=== PATIENT | male | born 1950 | race Caucasian/White ===

== ENCOUNTER 2017-03-15 10:52 | Day surgery (SDC) | payer OTHER ==
[~2017-03-15] VITALS: Ht 172.7 cm; Wt 91.0 kg
[~2017-03-15 10:52] MED LIST: ASPI-973 PO; DIFL500T PO; LOSA25TA21 PO; Sodium Chloride LOK Flush 10 mL Syringe IVFLUSH SCH; TAMS0.4C29 PO; ZLP5T PO; fentaNYL-PF 50 mCg/mL 2 mL Inj IVPUSH PRN
[2017-03-15] MEDS ORDERED: Lidocaine Topical 2% 30 mL Jelly ONE (11:42)
[2017-03-15 12:25] VITALS: BP 144/83; PULSE 50; RESP 14; O2SAT 98
[2017-03-15] MEDS: Lactated Ringer's 1,000 ML IV ONE ×2 (13:10→13:45)
[2017-03-15 13:57] VITALS: BP 125/70; PULSE 53; RESP 16; O2SAT 97
[2017-03-15 14:07] VITALS: BP 125/70; PULSE 56; RESP 16; O2SAT 98
[2017-03-15 14:17] VITALS: BP 135/85; PULSE 54; RESP 16; O2SAT 95
[2017-03-15 14:27] VITALS: BP 137/90; PULSE 55; RESP 16; O2SAT 98
--- NOTE | 2017-03-15 14:39 | DRSVH ---
PROCEDURE: X-RAY CHEST ONE VIEW, PORTABLE ([id number]) INDICATIONS: POST DILATION TEAR TECHNIQUE: One view of the chest was acquired. COMPARISON: [facility], CR, XR BARIUM SWALLOW ESOPHAGUS, 02/26/2017, 13:54[facility], [facility]ST 1VW ([facility]ABLE), 06/16/2007, 1:46. FINDINGS: Surgical changes and devices: None. Lungs and pleura: Left basilar infiltrate. There is chronic interstitial prominence. No pleural effu sions or pneumothorax. Mediastinum: Mediastinal contours appear normal. Heart size is normal. Bones and chest wall: No suspicious bony lesions. Overlying soft tissues appear unremarkable. IMPRESSION: Left basilar infiltrate suggesting developing pneumonia. Chronic interstitial prominence. Dictated by: Macarena Seymour M.D. on 03/15/2017 at 14:37 Approved by: Macarena Seymour M.D. on 03/15/2017 at 14:38
--- NOTE | 2017-03-15 22:49 | ENDO ---
[address] [address] ENDOSCOPY PROCEDURE PATIENT: BRIAN CHAMBERS : 1950 MR#: [id number] ADMIT: 03/15/2017 JOB ID: [id number] PREPROCEDURE DIAGNOSIS: Dysphagia. POSTPROCEDURE DIAGNOSIS: Dysphagia. PROCEDURE PERFORMED: Upper endoscopy with biopsies and dilation. SURGEON: Shayla Bae MD. INSTRUMENT: Olympus GIF H 180 J. MEDICATIONS: Versed 7 mg, fentanyl 150 mcg. HISTORY OF PRESENT ILLNESS: This is a 66-year-old man with severe dysphagia requiring a liquid diet and for which he has required endoscopic removal of foreign body in the past. He has not undergone previous dilation. Upper GI study revealed a stricture in the distal esophagus, likely Schatzki's ring, and does not allow passage of a 13 mm barium tablet. He was seen in my clinic and therefore full workup was ordered. FINDINGS: 1. The GE junction was at 41 cm. Balloon dilation was performed to 13.5, 15, and 16.5 mm. A mucosal tear was noted at the completion of 16.5 mm, approximately 0.5 cm in width without sign of full-thickness perforation, 3 cm in length. 2. Random biopsy at 30 cm given previous history of eosinophils seen on prior biopsies. 3. GE junction was at 41 cm. LA grade A esophagitis was noted at that level, biopsies were obtained. DESCRIPTION OF PROCEDURE: The patient was brought to the endoscopy suite, and placed in left lateral decubitus position. A bite block was placed. Moderate sedation was induced. An upper endoscope was advanced into the esophagus. It appeared grossly normal with the exception of the gastroesophageal junction at 41 cm, where there was a benign-appearing stricture and mild esophagitis, LA grade A. The endoscope was advanced in the stomach and to the third portion of the duodenum. The entire visualized duodenum appeared normal. The entire stomach appeared normal. Retroflex view of the gastroesophageal junction revealed a Hill grade 1 flap valve. The stomach was desufflated, and the endoscope was withdrawn. Due to the history of dysphagia, dilation was performed with a balloon, 1st to 13.5 cm or 35 mm for one minute, then to 15 mm for one minute, then to 16.5 mm for one minute. Mucosal tear was noted after 16.5 mm, as noted above. Although the patient had been scheduled for Vila pH probe placement at the completion of the procedure, the decision was made to defer this given the size of the mucosal break. A chest x-ray was ordered at the completion of the procedure. SPECIMENS: GE junction at 41 cm. Random esophageal biopsy at 30 cm to rule out eosinophilic esophagitis. ESTIMATED BLOOD LOSS: None. COMPLICATIONS: None. A small mucosal tear, 0.5 cm in width, raises concern in order to warrant a chest x-ray at the completion of the procedure.
--- NOTE | 2017-03-19 11:41 | PATH ---
SURGICAL PATHOLOGY Attending Physician:Shayla Bae MD CASE STATUS: Signed Out PATIENT NAME: BRIAN CHAMBERS PID: [id number] : 1950 DATE COLLECTED:03/15/2017 00:00 SPECIMEN: 1: Esophagus, Biopsy 2: Esophagus, Biopsy CLINICAL HISTORY: DYSPHAGIA 1). ESOPHAGUS AT 30CM BIOPSIES 2). GASTRO-ESOPHAGEAL JUNCTION BIOPSIES FINAL DIAGNOSIS: 1.ESOPHAGUS BIOPSY AT 30 CM: FRAGMENTS OF SQUAMOUS EPITHELIUM WITH INTRAEPITHELIAL EOSINOPHILS NUMBERING UP TO 25 PER HIGH-POWERED FIELD, AND ASSOCIATED EPITHELIAL REACTIVE CHANGES, ALL CONSISTENT WITH EOSINOPHILIC ESOPHAGITIS (SEE COMMENT). 2.GASTROESOPHAGEAL JUNCTION BIOPSIES: SQUAMOUS MUCOSA AND GASTRIC CARDIA-TYPE MUCOSA, NEGATIVE FOR SPECIALIZED METAPLASIA OF BERG' S-TYPE ESOPHAGUS. NEGATIVE FOR DYSPLASIA AND MALIGNANCY. SQUAMOUS EPITHELIUM CONTAINS EOSINOPHILS NUMBERING UP TO 25 PER HIGH-POWERED FIELD (SEE COMMENT). ICD10 code K20.0 NOTE: Numerous intraepithelial eosinophils present within the squamous epithelium at the gastroesophageal junction are consistent with changes of chronic reflux. In this case, however, when considered in conjunction with the increased eosinophils present in the squamous epithelium in the biopsy in part 1 they most likely are consistent with eosinophilic esophagitis. Clinical correlation is suggested. GROSS DESCRIPTION: Received are two formalin-filled containers, both labeled with the patient' s name: 1. Received in formalin, labeled with the patient' s name and "esoph at 30 cm", is one fragment of li, soft tissue measuring 0.2 x 0.1 x 0.1 cm. The fragment is totally submitted in cassette 1A. 2. Received in formalin, labeled with the patient' s name and "GE junction BX", are two fragments of li, soft tissue ranging in size from 0.2 x 0.1 x 0.1 cm to 0.3 x 0.2 x 0.2 cm. All fragments are totally submitted in cassette 2A. ([id number]) MICRO DESCRIPTION: See diagnosis. ICD-9 CODES: CPT CODES: 1: 79933 2: 65712 Electronically Signed Out Koko Joseph MD [facility] Pathology [facility] [address], [place] [address] Technical component performed at [facility], [facility] [address], [place], [address]
== END 2017-03-15 23:59 | disposition home or self-care (01) ==
LOC: END 10:52
PROVIDERS: ATTEND Surgery
DX: K20.0 Eosinophilic esophagitis (principal); K21.9 Gastro-esophageal reflux disease without esophagitis; K22.2 Esophageal obstruction; I10 Essential (primary) hypertension; R00.1 Bradycardia, unspecified; Z79.82 Long term (current) use of aspirin
CPT/HCPCS: 43239; 43249; 71010; 91010; 91037; 99153; G0500; J7120